=== PATIENT | male | born 1945 | race Caucasian/White ===

== ENCOUNTER → 2016-11-19 | Outpatient (CLI) | payer OTHER ==
[~2016-11-19] MED LIST: CEPH-37 PO; CLON1TAB3 PO; COLC1CAP PO; CYCL1TAB18 PO; FINA5TAB4 PO; METO-159 PO; SERT-160 PO
[2016-11-19 16:37] LABS: Basophils # (auto) 0 uL; Basophils % (auto) 0.5 % (0.0-2.0); Eosinophils # (auto) 0.3 uL; Eosinophils % (auto) 3.4 % (0.0-7.0); Hematocrit 50.6 % (41.0-53.0); Hemoglobin 16.9 g/dL (13.5-17.5); Lymphocytes # (auto) 1.4 uL; Lymphocytes % (auto) 19.4 % (10.0-50.0); Mean Corpuscular Hemoglobin 30.5 pg (28.0-32.0); Mean Corpuscular Hgb Conc. 33.3 g/dL (32.0-36.0); Mean Corpuscular Volume 91.5 fL (80.0-100.0); Mean Platelet Volume 6.9 fL (7.4-10.4); Monocytes # (auto) 0.7 uL; Monocytes % (auto) 8.7 % (0.0-12.0); Neutrophils # (auto) 5.1 uL; Platelet Count (auto) 191 10^3/uL (140-450); Red Cell Distribution Width 16.1 % (11.6-16.0); White Blood Cell 7.5 10^3/uL (4.4-10.8)
[2016-11-19 16:48] LABS: BUN/Creatinine Ratio 28.6; Calcium 8.9 mg/dL (8.5-10.1); Potassium 4.3 mmol/L (3.5-5.1)
[2016-11-19 16:51] LABS: Bilirubin, Total 1.2 mg/dL (0.2-1.0); Total Protein 7.4 g/dL (6.4-8.2)
[2016-11-19 16:58] LABS: INR 1.12 (0.9-1.15); Partial Thromboplastin Time 28.3 sec (22.64-33.71); Prothrombin Time 11.5 sec (9.37-12.3)
[2016-11-19 17:10] LABS: Urine Bilirubin Negative (Negative); Urine Blood Negative /uL (Negative); Urine Color Yellow (Yellow); Urine Glucose Normal (Normal); Urine Ketone Negative (Negative); Urine Mucus FEW (None Seen); Urine RBC 6 /hpf (0 - 3); Urine Urobilinogen Normal (Negative); Urine WBC Clumps PRESENT /hpf (None Seen); Urine pH 5.5 (5.0-8.0)
[2016-11-19 17:11] LABS: Urine Nitrite POSITIVE (Negative)
== END | disposition home or self-care (01) ==
LOC: LAB 14:42
PROVIDERS: ATTEND Podiatrist Foot & Ankle Surgery
DX: L89.899 Pressure ulcer of other site, unspecified stage (principal)
CPT/HCPCS: 36415; 80053; 81001; 85025; 85610; 85730

== ENCOUNTER → 2016-12-01 | Day surgery (SDC) | payer OTHER ==
[~2016-12-01] VITALS: Ht 193 cm; Wt 108.9 kg
[~2016-12-01] MED LIST changes: +BUPIVACAINE 0.75% INJ 10ML MPV SDV IJ ONE; +BUPIVACAINE W/ EPINEPH 0.25% INJ 50ML MDV ONE; -CEPH-37 PO; +DEXAMETHASONE SOD PHOS 10MG/1ML VIAL INJ ONE; +HYDROmorphone HCL 2 MG/ML VL IV PRN; +KETOROLAC TROMETH 60MG/2ML VIAL IM ONE; +LIDOCAINE 1% HCL (LOCAL ANESTH.) INJ 20ML MDV ONE; +MIDAZOLAM HCL 1MG/1ML-2 ML VIAL ONE; +NEOMYCIN-BACITRACIN-POLYM 15GM TOP OINT TOP ONE; +ONDANSETRON HCL 4 MG/2 ML VIAL IV ONE; +ONDANSETRON HCL 4 MG/2 ML VIAL ONE; +PROPOFOL 10 MG/ML 20 ML IV ONE; +ROPIVACAINE 0.5% (5MG/ML) 20ML AMPULE IJ ONE; +ceFAZolin 1GM VL ONE; +ceFAZolin 1GM/50ML D5W 50 ML IV ONE; +fentaNYL CITRATE 100 MCG/2 ML VL ONE; +methylPREDNISolone ACETATE 80 MG/ML VL ONE
[2016-12-01 07:04] LABS: Basophils # (auto) 0 uL; Basophils % (auto) 0.3 % (0.0-2.0); Eosinophils # (auto) 0.4 uL; Eosinophils % (auto) 5.2 % (0.0-7.0); Hematocrit 48.9 % (41.0-53.0); Hemoglobin 16.6 g/dL (13.5-17.5); Lymphocytes # (auto) 1.6 uL; Lymphocytes % (auto) 22.8 % (10.0-50.0); Mean Corpuscular Hemoglobin 30.9 pg (28.0-32.0); Mean Corpuscular Volume 90.7 fL (80.0-100.0); Mean Platelet Volume 6.5 fL (7.4-10.4); Monocytes # (auto) 0.7 uL; Monocytes % (auto) 10.2 % (0.0-12.0); Neutrophils # (auto) 4.3 uL; Neutrophils % (auto) 61.5 % (37.0-80.0); Platelet Count (auto) 179 10^3/uL (140-450); Red Cell Distribution Width 15.7 % (11.6-16.0)
[2016-12-01 07:20] LABS: Calcium 8.4 mg/dL (8.5-10.1); Potassium 4.1 mmol/L (3.5-5.1)
[2016-12-01 07:32] LABS: INR 1.1 (0.9-1.15); Partial Thromboplastin Time 27.5 sec (22.64-33.71); Prothrombin Time 11.3 sec (9.37-12.3)
[2016-12-01 09:12] VITALS: BP 106/64
== END | disposition home or self-care (01) ==
LOC: SUR 06:20
PROVIDERS: ATTEND Podiatrist Foot & Ankle Surgery
DX: M21.6X2 Other acquired deformities of left foot (principal); M24.575 Contracture, left foot; L97.429 Non-pressure chronic ulcer of left heel and midfoot with unspecified severity; I50.9 Heart failure, unspecified; F41.9 Anxiety disorder, unspecified; F32.9 Major depressive disorder, single episode, unspecified; F10.99 Alcohol use, unspecified with unspecified alcohol-induced disorder; B19.10 Unspecified viral hepatitis B without hepatic coma
CPT/HCPCS: 27685; 29999; 36415; 80048; 85025; 85610; 85730; J0690; J1040; J1100; J1885; J2250; J2405; J2704; J3010; J3490; J2001

== ENCOUNTER → 2017-01-30 | Outpatient (CLI) | payer OTHER ==
[~2017-01-30] MED LIST changes: -BUPIVACAINE 0.75% INJ 10ML MPV SDV IJ ONE; -BUPIVACAINE W/ EPINEPH 0.25% INJ 50ML MDV ONE; -DEXAMETHASONE SOD PHOS 10MG/1ML VIAL INJ ONE; -HYDROmorphone HCL 2 MG/ML VL IV PRN; -KETOROLAC TROMETH 60MG/2ML VIAL IM ONE; -LIDOCAINE 1% HCL (LOCAL ANESTH.) INJ 20ML MDV ONE; -MIDAZOLAM HCL 1MG/1ML-2 ML VIAL ONE; -NEOMYCIN-BACITRACIN-POLYM 15GM TOP OINT TOP ONE; -ONDANSETRON HCL 4 MG/2 ML VIAL IV ONE; -ONDANSETRON HCL 4 MG/2 ML VIAL ONE; -PROPOFOL 10 MG/ML 20 ML IV ONE; -ROPIVACAINE 0.5% (5MG/ML) 20ML AMPULE IJ ONE; -ceFAZolin 1GM VL ONE; -ceFAZolin 1GM/50ML D5W 50 ML IV ONE; -fentaNYL CITRATE 100 MCG/2 ML VL ONE; -methylPREDNISolone ACETATE 80 MG/ML VL ONE
== END | disposition home or self-care (01) ==
LOC: RT 19:24
PROVIDERS: ATTEND Internal Medicine Pulmonary Disease
DX: G47.33 Obstructive sleep apnea (adult) (pediatric) (principal)

== ENCOUNTER → 2017-02-27 | Outpatient (CLI) | payer OTHER | END | disposition home or self-care (01) | LOC: RT 19:35 | PROVIDERS: ATTEND Internal Medicine Pulmonary Disease | DX: G47.33 Obstructive sleep apnea (adult) (pediatric) (principal) ==

== ENCOUNTER 2017-04-04 13:31 | Inpatient (IN) | payer OTHER ==
[~2017-04-04] VITALS: Ht 193 cm; Wt 111.0 kg
[2017-04-04 15:29] LABS: Basophils # (auto) 0 uL; Basophils % (auto) 0.4 % (0.0-2.0); CONDITION Y; Eosinophils # (auto) 0.2 uL; Hematocrit 36.4 % (41.0-53.0); Hemoglobin 12.5 g/dL (13.5-17.5); Lymphocytes # (auto) 1.4 uL; Lymphocytes % (auto) 17.8 % (10.0-50.0); Mean Corpuscular Hgb Conc. 34.4 g/dL (32.0-36.0); Mean Corpuscular Volume 95.9 fL (80.0-100.0); Monocytes # (auto) 0.9 uL; Monocytes % (auto) 11.2 % (0.0-12.0); Neutrophils # (auto) 5.6 uL; Neutrophils % (auto) 68.6 % (37.0-80.0); Platelet Count (auto) 206 10^3/uL (140-450); Red Cell Distribution Width 14.6 % (11.6-16.0); White Blood Cell 8.1 10^3/uL (4.4-10.8)
[2017-04-04 15:35] LABS: Albumin 3.4 g/dL (3.4-5.0); BUN/Creatinine Ratio 38.9; Potassium 4.8 mmol/L (3.5-5.1)
[2017-04-04 15:38] LABS: Bilirubin, Total 0.7 mg/dL (0.2-1.0); Total Protein 6.6 g/dL (6.4-8.2)
[2017-04-04 15:41] LABS: INR 1.05 (0.9-1.15); Partial Thromboplastin Time 30.1 sec (22.64-33.71); Prothrombin Time 11.5 sec (9.37-12.3)
[2017-04-04] MEDS ORDERED: SODIUM CHLORIDE 0.9% 1,000 ML IV ONE (22:15)
[2017-04-04] MEDS ORDERED: PANTOPRAZOLE SODIUM 40 MG/10 ML VIAL IV ONE (22:15)
[2017-04-04 22:55] LABS: B-Type Natriuretic Peptide 106.88 pg/mL (0-100); Temperature: 22.9 C (20.0-25.0)
[2017-04-05 02:40] LABS: Urine Bilirubin Negative (Negative); Urine Blood Negative /uL (Negative); Urine Color Yellow (Yellow); Urine Glucose Normal (Normal); Urine Ketone Negative (Negative); Urine Mucus FEW (None Seen); Urine RBC 1 /hpf (0 - 3); Urine Squamous Epithelial Cell FEW /hpf (<5); Urine Urobilinogen Normal (Negative); Urine pH 5.5 (5.0-8.0)
[2017-04-05 02:42] LABS: Urine Nitrite POSITIVE (Negative)
[2017-04-05] MEDS ORDERED: LORazepam 2MG/ML-1ML VIAL IV ONE (05:00)
[2017-04-05] MEDS ORDERED: MORPHINE SULF INJ 2 MG/ML SYRINGE 1ML IV PRN (05:45)
[2017-04-05] MEDS ORDERED: SODIUM CHLORIDE 0.9% 1,000 ML IV ONE (05:45)
[2017-04-05] MEDS ORDERED: ONDANSETRON HCL 4 MG/2 ML VIAL IV PRN (05:45)
[2017-04-05 06:41] LABS: Hematocrit 31.7 % (41.0-53.0)
[2017-04-05] MEDS: SODIUM CHLORIDE 0.9% 1,000 ML IV SCH ×2 (07:20→19:00)
[2017-04-05] MEDS ORDERED: BETH5TAB2 PO (08:19)
[2017-04-05 08:31] VITALS: BP 127/67
[2017-04-05 09:11] VITALS: BP 130/65
[2017-04-05] MEDS: FINASTERIDE 5 MG TAB PO SCH (09:13)
[2017-04-05] MEDS: METOPROLOL TARTRATE 50 MG TAB PO SCH ×2 (09:14→21:49)
[2017-04-05] MEDS: PANTOPRAZOLE 40 MG TAB PO SCH (09:14)
[2017-04-05] MEDS: SERTRALINE HCL 50 MG TAB PO SCH (09:19)
[2017-04-05 12:27] LABS: Hematocrit 30.7 % (41.0-53.0); Hemoglobin 10.8 g/dL (13.5-17.5)
[2017-04-05 12:30] VITALS: BP 121/80
[2017-04-05 16:22] VITALS: BP 122/71
[2017-04-05] MEDS ORDERED: GASTROGRAFIN 120 ML SOL ONE (17:10)
[2017-04-05 19:09] LABS: Hematocrit 35.1 % (41.0-53.0)
[2017-04-05 20:00] VITALS: BP 122/69
[2017-04-05] MEDS: clonazePAM 0.5 MG TAB PO PRN (20:32)
[2017-04-05 22:00] VITALS: BP 122/69
[2017-04-06] VITALS (7 sets, daily range): BP systolic 100–125; BP diastolic 55–72
[2017-04-06 06:26] LABS: Basophils # (auto) 0 uL; Basophils % (auto) 0.3 % (0.0-2.0); CONDITION Y; Eosinophils # (auto) 0.2 uL; Eosinophils % (auto) 3.3 % (0.0-7.0); Hematocrit 30.5 % (41.0-53.0); Hemoglobin 10.5 g/dL (13.5-17.5); Mean Corpuscular Hgb Conc. 34.4 g/dL (32.0-36.0); Mean Corpuscular Volume 96.1 fL (80.0-100.0); Mean Platelet Volume 6.7 fL (7.4-10.4); Monocytes # (auto) 0.6 uL; Monocytes % (auto) 9.6 % (0.0-12.0); Neutrophils # (auto) 4.6 uL; Neutrophils % (auto) 71.8 % (37.0-80.0); Platelet Count (auto) 165 10^3/uL (140-450); Red Cell Distribution Width 14.3 % (11.6-16.0); White Blood Cell 6.4 10^3/uL (4.4-10.8)
[2017-04-06 06:55] LABS: BUN/Creatinine Ratio 28.4; Bilirubin, Total 0.7 mg/dL (0.2-1.0); Calcium 7.7 mg/dL (8.5-10.1); Magnesium 1.9 mg/dL (1.6-2.6); Potassium 3.3 mmol/L (3.5-5.1); Total Protein 5.6 g/dL (6.4-8.2)
[2017-04-06] MEDS: FINASTERIDE 5 MG TAB PO SCH (11:06)
[2017-04-06] MEDS: METOPROLOL TARTRATE 50 MG TAB PO SCH ×2 (11:07→21:59)
[2017-04-06] MEDS: PANTOPRAZOLE 40 MG TAB PO SCH (11:07)
[2017-04-06] MEDS: SERTRALINE HCL 50 MG TAB PO SCH (11:07)
[2017-04-06] MEDS: SODIUM CHLORIDE 0.9% 1,000 ML IV SCH ×2 (11:08→22:03)
[2017-04-06] MEDS: clonazePAM 0.5 MG TAB PO PRN (11:26)
[2017-04-06] MEDS ORDERED: MAGNESIUM SULFATE 1GM/100ML 100 ML IV ONE (12:30)
[2017-04-06] MEDS ORDERED: GOLYTELY 4L KIT PO ONE (13:45)
[2017-04-06] MEDS: POTASSIUM CHL 20MEQ/100ML 100 ML IV SCH ×2 (14:30→18:00)
[2017-04-06] MEDS ORDERED: POTASSIUM CHL 20MEQ/100ML 100 ML IV ONE (20:00)
[2017-04-07] MEDS: clonazePAM 0.5 MG TAB PO PRN ×3 (00:32→23:58)
[2017-04-07 05:00] VITALS: BP 112/68
[2017-04-07 06:29] LABS: Hematocrit 29.6 % (41.0-53.0); Hemoglobin 10.6 g/dL (13.5-17.5)
[2017-04-07 06:59] LABS: Potassium 3.5 mmol/L (3.5-5.1)
[2017-04-07 07:06] LABS: BUN/Creatinine Ratio 15.6; Calcium 7.8 mg/dL (8.5-10.1)
[2017-04-07 09:00] VITALS: BP 111/67
[2017-04-07] MEDS ORDERED: fentaNYL CITRATE 100 MCG/2 ML VL ONE (12:16)
[2017-04-07] MEDS ORDERED: MIDAZOLAM HCL 1MG/1ML-2 ML VIAL ONE (12:17)
[2017-04-07] MEDS ORDERED: PROPOFOL 10 MG/ML 20 ML IV ONE (12:17)
[2017-04-07] MEDS ORDERED: ONDANSETRON HCL 4 MG/2 ML VIAL IV ONE (12:20)
[2017-04-07] MEDS ORDERED: BENZOCAINE (DENTAL) 20 % SPRAY 60ML MT ONE (12:23)
[2017-04-07 13:30] VITALS: BP 115/73
[2017-04-07] MEDS: FINASTERIDE 5 MG TAB PO SCH (14:34)
[2017-04-07] MEDS: SODIUM CHLORIDE 0.9% 1,000 ML IV SCH (14:35)
[2017-04-07] MEDS: PANTOPRAZOLE 40 MG TAB PO SCH (14:35)
[2017-04-07] MEDS: SERTRALINE HCL 50 MG TAB PO SCH (14:35)
[2017-04-07] MEDS: METOPROLOL TARTRATE 50 MG TAB PO SCH ×2 (14:36→21:35)
[2017-04-07] MEDS ORDERED: POTASSIUM CHL 20 Meq TABLET PO ONE (15:45)
[2017-04-07] MEDS ORDERED: LEVOFLOXACIN 500MG 100 ML IV ONE (16:45)
[2017-04-07 17:05] VITALS: BP 115/74
[2017-04-07 22:00] VITALS: BP 109/65
[2017-04-08 05:00] VITALS: BP 106/67
[2017-04-08] MEDS ORDERED: SODIUM CHLORIDE 0.9% 1,000 ML IV SCH (05:40)
[2017-04-08 06:03] LABS: Hematocrit 30.1 % (41.0-53.0); Hemoglobin 10.3 g/dL (13.5-17.5)
[2017-04-08 09:18] VITALS: BP 107/70
[2017-04-08] MEDS ORDERED: LEVOFLOXACIN 500MG 100 ML IV SCH (10:00)
[2017-04-08] MEDS: SERTRALINE HCL 50 MG TAB PO SCH (10:55)
[2017-04-08] MEDS: clonazePAM 0.5 MG TAB PO PRN (10:55)
[2017-04-08] MEDS: FINASTERIDE 5 MG TAB PO SCH (10:57)
[2017-04-08] MEDS: METOPROLOL TARTRATE 50 MG TAB PO SCH (10:57)
[2017-04-08] MEDS: PANTOPRAZOLE 40 MG TAB PO SCH (10:57)
[2017-04-08] MEDS ORDERED: PANT40T PO (12:46)
[2017-04-08] MEDS ORDERED: LEVO500T21 PO (12:46)
[2017-04-08] MEDS ORDERED: SACC250C PO (12:46)
[2017-04-08 13:20] VITALS: BP 120/73
== END 2017-04-08 16:26 | disposition home or self-care (01) | DRG 389 ==
LOC: ER 13:33 → OVERFLOW 13:34 → TELE-E-ADS 04-05 07:51 → WEST WING 04-05 08:02
PROVIDERS: ADMIT Family Medicine; ATTEND Internal Medicine
PROC: 0DJ08ZZ Inspection of Upper Intestinal Tract, Via Natural or Artificial Opening Endoscopic (ICD-10-PCS; principal; 2017-04-07 12:20)
PROC: 0DBN8ZX Excision of Sigmoid Colon, Via Natural or Artificial Opening Endoscopic, Diagnostic (ICD-10-PCS; 2017-04-07 12:20)
DX: K56.1 Intussusception (principal); K92.2 Gastrointestinal hemorrhage, unspecified; N39.0 Urinary tract infection, site not specified; D64.9 Anemia, unspecified; I11.0 Hypertensive heart disease with heart failure; I50.9 Heart failure, unspecified; N28.1 Cyst of kidney, acquired; Z85.46 Personal history of malignant neoplasm of prostate; Z88.8 Allergy status to other drugs, medicaments and biological substances; Z85.9 Personal history of malignant neoplasm, unspecified; Z71.89 Other specified counseling; K64.8 Other hemorrhoids; K20.9 Esophagitis, unspecified
CPT/HCPCS: 36415; 43235; 45380; 71010; 74176; 74250; 80048; 80053; 80061; 81001; 82140; 82270; 82378; 83690; 83735; 83880; 84132; 84484; 85014; 85018; 85025; 85045; 85610; 85730; 86141; 86850; 86900; 86901; 87086; 87088; 87186; 93005; 96374; 96375; C9113; J1956; J2250; J2405; J2704; J3480

== ENCOUNTER → 2017-04-14 | Outpatient (CLI) | payer OTHER ==
[~2017-04-14] MED LIST changes: +BETH5TAB2 PO; +LEVO500T21 PO; +PANT40T PO; +SACC250C PO
[2017-04-14 12:22] LABS: Basophils # (auto) 0 uL; Basophils % (auto) 0.3 % (0.0-2.0); CONDITION Y; Eosinophils # (auto) 0.2 uL; Eosinophils % (auto) 3.8 % (0.0-7.0); Hematocrit 34.2 % (41.0-53.0); Hemoglobin 11.9 g/dL (13.5-17.5); Lymphocytes # (auto) 1.2 uL; Lymphocytes % (auto) 20.5 % (10.0-50.0); Mean Corpuscular Hgb Conc. 34.8 g/dL (32.0-36.0); Mean Platelet Volume 6.5 fL (7.4-10.4); Monocytes # (auto) 0.5 uL; Monocytes % (auto) 8.9 % (0.0-12.0); Neutrophils % (auto) 66.5 % (37.0-80.0); Platelet Count (auto) 235 10^3/uL (140-450); Red Cell Distribution Width 13.7 % (11.6-16.0)
[2017-04-14 13:14] LABS: BUN/Creatinine Ratio 21.6; Calcium 8.4 mg/dL (8.5-10.1); Potassium 3.8 mmol/L (3.5-5.1)
== END | disposition home or self-care (01) ==
LOC: LAB 10:41
PROVIDERS: ATTEND Family Medicine
DX: K92.2 Gastrointestinal hemorrhage, unspecified (principal)
CPT/HCPCS: 36415; 80048; 85025

== ENCOUNTER → 2017-05-03 | Day surgery (SDC) | payer OTHER ==
[2017-05-02 13:23] LABS: Basophils # (auto) 0 uL; Basophils % (auto) 0.3 % (0.0-2.0); CONDITION Y; Eosinophils # (auto) 0.3 uL; Eosinophils % (auto) 4.7 % (0.0-7.0); Hematocrit 35.1 % (41.0-53.0); Hemoglobin 11.7 g/dL (13.5-17.5); Lymphocytes # (auto) 1.1 uL; Lymphocytes % (auto) 16.6 % (10.0-50.0); Mean Corpuscular Hemoglobin 27.8 pg (28.0-32.0); Mean Corpuscular Hgb Conc. 33.2 g/dL (32.0-36.0); Mean Corpuscular Volume 83.7 fL (80.0-100.0); Mean Platelet Volume 7.1 fL (7.4-10.4); Monocytes # (auto) 0.6 uL; Monocytes % (auto) 9.2 % (0.0-12.0); Neutrophils # (auto) 4.6 uL; Neutrophils % (auto) 69.2 % (37.0-80.0); Platelet Count (auto) 206 10^3/uL (140-450); Red Cell Distribution Width 16.2 % (11.6-16.0); White Blood Cell 6.6 10^3/uL (4.4-10.8)
[2017-05-02 13:26] LABS: Partial Thromboplastin Time 28.6 sec (22.64-33.71); Prothrombin Time 10.9 sec (9.37-12.3)
[2017-05-02 13:52] LABS: Potassium 4.2 mmol/L (3.5-5.1)
[2017-05-02 14:27] LABS: Albumin 3.6 g/dL (3.4-5.0); BUN/Creatinine Ratio 33.7; Bilirubin, Total 0.6 mg/dL (0.2-1.0); Calcium 8.5 mg/dL (8.5-10.1); Total Protein 6.6 g/dL (6.4-8.2)
[~2017-05-03] VITALS: Ht 193 cm; Wt 108.9 kg
[~2017-05-03] MED LIST changes: -BETH5TAB2 PO; -COLC1CAP PO; -CYCL1TAB18 PO; -FINA5TAB4 PO; -LEVO500T21 PO; -PANT40T PO; -SACC250C PO
== END | disposition home or self-care (01) ==
LOC: SUR 11:32
PROVIDERS: ATTEND Urology
DX: N32.81 Overactive bladder (principal); R32 Unspecified urinary incontinence; Z53.9 Procedure and treatment not carried out, unspecified reason
CPT/HCPCS: 36415; 80053; 85025; 85610; 85730

== ENCOUNTER → 2017-05-26 | Outpatient (CLI) | payer OTHER ==
[2017-05-26 15:43] LABS: Basophils # (auto) 0 uL; Basophils % (auto) 0.1 % (0.0-2.0); CONDITION Y; DEFINITIVE SEE PRINTOUT; Eosinophils # (auto) 0.2 uL; Hematocrit 24.3 % (41.0-53.0); Hemoglobin 7.8 g/dL (13.5-17.5); Lymphocytes % (auto) 15.6 % (10.0-50.0); Mean Corpuscular Hemoglobin 24.5 pg (28.0-32.0); Mean Corpuscular Hgb Conc. 32.3 g/dL (32.0-36.0); Mean Corpuscular Volume 75.9 fL (80.0-100.0); Mean Platelet Volume 6.6 fL (7.4-10.4); Monocytes # (auto) 0.6 uL; Monocytes % (auto) 9.5 % (0.0-12.0); Neutrophils # (auto) 4.7 uL; Neutrophils % (auto) 71.8 % (37.0-80.0); Platelet Count (auto) 170 10^3/uL (140-450); Red Cell Distribution Width 18.8 % (11.6-16.0); White Blood Cell 6.6 10^3/uL (4.4-10.8)
== END | disposition home or self-care (01) ==
LOC: LAB 15:28
PROVIDERS: ATTEND Internal Medicine Gastroenterology
DX: K92.1 Melena (principal); K59.00 Constipation, unspecified; I10 Essential (primary) hypertension; N39.0 Urinary tract infection, site not specified
CPT/HCPCS: 36415; 85025

== ENCOUNTER → 2017-06-06 | Outpatient (CLI) | payer OTHER ==
[2017-06-06 13:00] LABS: Basophils # (auto) 0 uL; Basophils % (auto) 0.4 % (0.0-2.0); CONDITION Y; DEFINITIVE SEE PRINTOUT; Eosinophils # (auto) 0.2 uL; Eosinophils % (auto) 2.2 % (0.0-7.0); Hematocrit 24.7 % (41.0-53.0); Hemoglobin 7.9 g/dL (13.5-17.5); Lymphocytes # (auto) 1.1 uL; Mean Corpuscular Hemoglobin 22.7 pg (28.0-32.0); Mean Corpuscular Hgb Conc. 31.9 g/dL (32.0-36.0); Mean Corpuscular Volume 71.2 fL (80.0-100.0); Mean Platelet Volume 6.8 fL (6.9-10.8); Monocytes # (auto) 0.6 uL; Monocytes % (auto) 7.4 % (0.0-12.0); Neutrophils # (auto) 6.1 uL; Platelet Count (auto) 204 10^3/uL (140-450); Red Cell Distribution Width 19.6 % (11.8-14.3)
== END | disposition home or self-care (01) ==
LOC: LAB 12:42
PROVIDERS: ATTEND Family Medicine
DX: K92.2 Gastrointestinal hemorrhage, unspecified (principal); D64.9 Anemia, unspecified
CPT/HCPCS: 36415; 85025

== ENCOUNTER → 2017-06-27 | Outpatient (CLI) | payer OTHER ==
[~2017-06-27] VITALS: Ht 193 cm; Wt 108.9 kg
[~2017-06-27] MED LIST changes: +CLON05T PO; +FINA5TAB4 PO; +FLUMAZENIL 0.1 MG/ML INJ 10ML MDV IV ONE; +LIDOCAINE VISCOUS 2% 15ML UD ONE; +METO1TAB9 PO; +MIDAZOLAM HCL 5 MG/ML-1ML VIAL ONE; +NALOXONE HCL 0.4 MG/ML VIAL ONE; +PANT40TA2 PO; +SODIUM CHLORIDE LOCK 10 ML ONE; +diphenhdrAMINE HCL 50 MG/1 ML VL ONE; +fentaNYL CITRATE 100 MCG/2 ML VL ONE
[2017-06-27 12:39] LABS: INR 1.22 (0.9-1.15); Partial Thromboplastin Time 28.5 sec (22.64-33.71); Prothrombin Time 13.3 sec (9.37-12.3)
[2017-06-27 13:06] LABS: Basophils # (auto) 0 uL; Basophils % (auto) 0.5 % (0.0-2.0); Eosinophils # (auto) 0.2 uL; Eosinophils % (auto) 3.4 % (0.0-7.0); Hematocrit 25.7 % (41.0-53.0); Hemoglobin 7.5 g/dL (13.5-17.5); Lymphocytes # (auto) 0.7 uL; Mean Corpuscular Hemoglobin 19.6 pg (28.0-32.0); Mean Corpuscular Hgb Conc. 29.3 g/dL (32.0-36.0); Mean Platelet Volume 6.6 fL (6.9-10.8); Monocytes # (auto) 0.5 uL; Monocytes % (auto) 10.4 % (0.0-12.0); Neutrophils # (auto) 3.7 uL; Neutrophils % (auto) 71.7 % (37.0-80.0); Nucleated Red Blood Cells % 0.5 %; Platelet Count (auto) 141 10^3/uL (140-450); White Blood Cell 5.2 10^3/uL (4.4-10.8)
[2017-06-27 13:07] LABS: Red Cell Distribution Width 20.4 % (11.8-14.3)
[2017-06-27 13:08] LABS: Platelet Estimate Adequate
[2017-06-27 13:09] LABS: Anisocytosis Moderate; Hypochromia Marked; Microcytosis Marked; Ovalocytes FEW; Tear Drop Cells FEW
== END | disposition home or self-care (01) ==
LOC: LAB 08:00 → EDSTATUS 07-01 11:15
PROVIDERS: ATTEND Internal Medicine Gastroenterology
DX: R11.0 Nausea (principal); Z79.01 Long term (current) use of anticoagulants
CPT/HCPCS: 36415; 85025; 85610; 85730; J2250

== ENCOUNTER 2017-07-04 14:34 | Inpatient (IN) | payer OTHER ==
[~2017-07-04] VITALS: Ht 193 cm; Wt 127.8 kg
[~2017-07-04 14:34] MED LIST changes: -CLON05T PO; -FLUMAZENIL 0.1 MG/ML INJ 10ML MDV IV ONE; -LIDOCAINE VISCOUS 2% 15ML UD ONE; -METO1TAB9 PO; -MIDAZOLAM HCL 5 MG/ML-1ML VIAL ONE; -NALOXONE HCL 0.4 MG/ML VIAL ONE; -SODIUM CHLORIDE LOCK 10 ML ONE; -diphenhdrAMINE HCL 50 MG/1 ML VL ONE; -fentaNYL CITRATE 100 MCG/2 ML VL ONE
[2017-07-04 17:00] VITALS: BP 140/96
[2017-07-04 18:34] LABS: Basophils # (auto) 0 uL; Basophils % (auto) 0.6 % (0.0-2.0); Eosinophils # (auto) 0.1 uL; Hemoglobin 7.6 g/dL (13.5-17.5); Lymphocytes % (auto) 13.2 % (10.0-50.0); Mean Platelet Volume 7.9 fL (6.9-10.8); Monocytes # (auto) 0.6 uL; Neutrophils # (auto) 4.2 uL
[2017-07-04 18:36] LABS: Eosinophils % (auto) 1.7 % (0.0-7.0); Hematocrit 26.6 % (41.0-53.0); Lymphocytes # (auto) 0.8 uL; Mean Corpuscular Hemoglobin 18.8 pg (28.0-32.0); Mean Corpuscular Hgb Conc. 28.5 g/dL (32.0-36.0); Monocytes % (auto) 10.8 % (0.0-12.0); Neutrophils % (auto) 73.7 % (37.0-80.0); Nucleated Red Blood Cells % 0.5 %; Platelet Count (auto) 137 10^3/uL (140-450); White Blood Cell 5.7 10^3/uL (4.4-10.8)
[2017-07-04 18:52] LABS: INR 1.24 (0.9-1.15); Partial Thromboplastin Time 28.5 sec (22.64-33.71); Prothrombin Time 13.6 sec (9.37-12.3)
[2017-07-04 19:00] LABS: BUN/Creatinine Ratio 22.9; Calcium 8.1 mg/dL (8.5-10.1); Potassium 4.1 mmol/L (3.5-5.1); Red Cell Distribution Width 20.2 % (11.8-14.3)
[2017-07-04 19:22] LABS: Ovalocytes MODERATE; Stomatocytes Few
[2017-07-04 19:23] LABS: Anisocytosis Slight; Hypochromia Marked; Microcytosis Marked; Platelet Estimate Decreased; Tear Drop Cells FEW
[2017-07-04 19:24] LABS: Polychromasia Slight
[2017-07-04 20:00] VITALS: BP 129/79
[2017-07-04 21:27] VITALS: BP 129/79
[2017-07-04 21:48] VITALS: BP 132/90
[2017-07-04] MEDS: clonazePAM 0.5 MG TAB PO SCH (21:53)
[2017-07-04] MEDS: METOPROLOL TARTRATE 50 MG TAB PO SCH (21:54)
[2017-07-04] MEDS: SERTRALINE HCL 50 MG TAB PO SCH (21:54)
[2017-07-04 22:00] VITALS: BP 129/79
[2017-07-04 22:20] VITALS: BP 135/91
[2017-07-05] VITALS (10 sets, daily range): BP systolic 114–129; BP diastolic 61–81
[2017-07-05 00:52] LABS: Urine RBC None Seen /hpf (0 - 3)
[2017-07-05 01:06] LABS: Urine Bilirubin Negative (Negative); Urine Blood Negative /uL (Negative); Urine Color Yellow (Yellow); Urine Glucose Normal (Normal); Urine Hyaline Cast FEW /lpf (0 - 2); Urine Ketone Negative (Negative); Urine Nitrite Negative (Negative); Urine Urobilinogen Normal (Negative); Urine pH 5.5 (5.0-8.0)
[2017-07-05 05:44] LABS: Basophils # (auto) 0 uL; Basophils % (auto) 0.6 % (0.0-2.0); Eosinophils # (auto) 0.2 uL; Hematocrit 29.1 % (41.0-53.0); Hemoglobin 8.7 g/dL (13.5-17.5); Mean Corpuscular Hemoglobin 20.3 pg (28.0-32.0); Mean Corpuscular Hgb Conc. 29.8 g/dL (32.0-36.0); Mean Platelet Volume 7.9 fL (6.9-10.8); Nucleated Red Blood Cells % 0.3 %; White Blood Cell 7.3 10^3/uL (4.4-10.8)
[2017-07-05 05:48] LABS: Eosinophils % (auto) 2.5 % (0.0-7.0); Lymphocytes # (auto) 0.9 uL; Lymphocytes % (auto) 12.3 % (10.0-50.0); Monocytes # (auto) 0.8 uL; Monocytes % (auto) 11.1 % (0.0-12.0); Neutrophils # (auto) 5.3 uL; Neutrophils % (auto) 73.5 % (37.0-80.0); Platelet Count (auto) 130 10^3/uL (140-450)
[2017-07-05 05:51] LABS: Red Cell Distribution Width 22.6 % (11.8-14.3)
[2017-07-05 06:13] LABS: BUN/Creatinine Ratio 23.4; Calcium 8.4 mg/dL (8.5-10.1); Potassium 4.3 mmol/L (3.5-5.1)
[2017-07-05 06:36] LABS: Platelet Estimate Decreased
[2017-07-05 06:37] LABS: Anisocytosis Slight; Hypersegmented Neutrophils Present; Hypochromia Marked; Microcytosis Marked; Polychromasia Slight; Tear Drop Cells FEW
[2017-07-05 06:38] LABS: Ovalocytes MODERATE
[2017-07-05] MEDS: METOPROLOL TARTRATE 50 MG TAB PO SCH (10:00)
[2017-07-05] MEDS: FINASTERIDE 5 MG TAB PO SCH (10:00)
[2017-07-05] MEDS: SERTRALINE HCL 50 MG TAB PO SCH ×2 (10:00→22:57)
[2017-07-05] MEDS: PANTOPRAZOLE 40 MG TAB PO SCH (10:00)
[2017-07-05] MEDS ORDERED: METO1TAB9 PO (12:09)
[2017-07-05] MEDS ORDERED: METOPROLOL SUCCINATE XL 50 MG TAB PO ONE (12:45)
[2017-07-05] MEDS ORDERED: FUROSEMIDE 40 MG/4 ML VIAL IV ONE (12:45)
[2017-07-05] MEDS ORDERED: POTASSIUM CHL 20 Meq TABLET PO ONE (12:45)
[2017-07-05] MEDS: clonazePAM 0.5 MG TAB PO SCH (22:56)
[2017-07-05] MEDS ORDERED: CLON05T PO (23:09)
[2017-07-06] VITALS (7 sets, daily range): BP systolic 105–133; BP diastolic 53–86
[2017-07-06 06:49] LABS: Basophils # (auto) 0 uL; Eosinophils # (auto) 0.2 uL; Lymphocytes # (auto) 0.9 uL; Monocytes # (auto) 0.7 uL
[2017-07-06 07:01] LABS: Basophils % (auto) 0.4 % (0.0-2.0); Eosinophils % (auto) 2.9 % (0.0-7.0); Hematocrit 28.7 % (41.0-53.0); Hemoglobin 8.4 g/dL (13.5-17.5); Lymphocytes % (auto) 13.3 % (10.0-50.0); Mean Corpuscular Hemoglobin 20.1 pg (28.0-32.0); Mean Corpuscular Hgb Conc. 29.4 g/dL (32.0-36.0); Mean Corpuscular Volume 68.3 fL (80.0-100.0); Monocytes % (auto) 10.9 % (0.0-12.0); Neutrophils # (auto) 4.6 uL; Neutrophils % (auto) 72.5 % (37.0-80.0); Nucleated Red Blood Cells % 0.2 %; Platelet Count (auto) 120 10^3/uL (140-450); White Blood Cell 6.4 10^3/uL (4.4-10.8)
[2017-07-06 07:09] LABS: Calcium 8.2 mg/dL (8.5-10.1); Potassium 4.5 mmol/L (3.5-5.1)
[2017-07-06 07:14] LABS: BUN/Creatinine Ratio 21.3
[2017-07-06 08:12] LABS: Red Cell Distribution Width 22.1 % (11.8-14.3)
[2017-07-06] MEDS: PANTOPRAZOLE 40 MG TAB PO SCH (10:43)
[2017-07-06] MEDS: FINASTERIDE 5 MG TAB PO SCH (10:43)
[2017-07-06] MEDS: METOPROLOL SUCCINATE XL 50 MG TAB PO SCH (10:43)
[2017-07-06] MEDS: SERTRALINE HCL 50 MG TAB PO SCH ×2 (10:43→22:10)
[2017-07-06 11:35] LABS: Anisocytosis Slight; Hypochromia Marked; Microcytosis Marked
[2017-07-06 11:36] LABS: Ovalocytes MODERATE; Platelet Estimate Decreased; Tear Drop Cells FEW
[2017-07-06 11:38] LABS: Burr Cells FEW
[2017-07-06] MEDS ORDERED: POTASSIUM CHL 20 Meq TABLET PO ONE (13:00)
[2017-07-06] MEDS ORDERED: FUROSEMIDE 40 MG/4 ML VIAL IV ONE (13:00)
[2017-07-06] MEDS: clonazePAM 0.5 MG TAB PO SCH (22:11)
[2017-07-07 05:00] VITALS: BP 127/78
[2017-07-07 06:13] LABS: Basophils # (auto) 0 uL; Eosinophils # (auto) 0.2 uL; Eosinophils % (auto) 3.3 % (0.0-7.0); Hemoglobin 8.8 g/dL (13.5-17.5); Mean Corpuscular Hemoglobin 20.3 pg (28.0-32.0); Monocytes # (auto) 0.7 uL; Neutrophils # (auto) 5.1 uL; Nucleated Red Blood Cells % 0.1 %; White Blood Cell 6.9 10^3/uL (4.4-10.8)
[2017-07-07 06:15] LABS: Basophils % (auto) 0.5 % (0.0-2.0); Hematocrit 29.8 % (41.0-53.0); Lymphocytes # (auto) 0.8 uL; Lymphocytes % (auto) 12.1 % (10.0-50.0); Mean Corpuscular Hgb Conc. 29.5 g/dL (32.0-36.0); Mean Corpuscular Volume 68.9 fL (80.0-100.0); Monocytes % (auto) 10.4 % (0.0-12.0); Neutrophils % (auto) 73.7 % (37.0-80.0); Platelet Count (auto) 112 10^3/uL (140-450)
[2017-07-07 06:28] LABS: Red Cell Distribution Width 23.9 % (11.8-14.3)
[2017-07-07 08:30] VITALS: BP 138/83
[2017-07-07 08:45] LABS: Anisocytosis Moderate; Hypochromia Marked; Microcytosis Marked; Platelet Estimate Decreased
[2017-07-07 08:46] LABS: Ovalocytes FEW
[2017-07-07] MEDS: FINASTERIDE 5 MG TAB PO SCH (10:32)
[2017-07-07] MEDS: PANTOPRAZOLE 40 MG TAB PO SCH (10:32)
[2017-07-07] MEDS: SERTRALINE HCL 50 MG TAB PO SCH (10:32)
[2017-07-07] MEDS: METOPROLOL SUCCINATE XL 50 MG TAB PO SCH (10:33)
[2017-07-07 12:30] VITALS: BP 111/82
[2017-07-07 15:20] VITALS: BP 138/83
[2017-07-18] MEDS ORDERED: POTA10TA34 PO (13:16)
[2017-07-18] MEDS ORDERED: FERR325T18 PO (13:16)
== END 2017-07-07 15:45 | disposition home or self-care (01) | DRG 377 ==
LOC: WEST WING 14:34
PROVIDERS: ADMIT Family Medicine; ATTEND Internal Medicine
PROC: 30233N1 Transfusion of Nonautologous Red Blood Cells into Peripheral Vein, Percutaneous Approach (ICD-10-PCS; 2017-07-04)
PROC: 0DB68ZX Excision of Stomach, Via Natural or Artificial Opening Endoscopic, Diagnostic (ICD-10-PCS; principal; 2017-07-05 11:30)
DX: K29.71 Gastritis, unspecified, with bleeding (principal); I50.43 Acute on chronic combined systolic (congestive) and diastolic (congestive) heart failure; J96.90 Respiratory failure, unspecified, unspecified whether with hypoxia or hypercapnia; Q87.40 Marfan syndrome, unspecified; D69.6 Thrombocytopenia, unspecified; I11.0 Hypertensive heart disease with heart failure; D64.9 Anemia, unspecified; Z53.29 Procedure and treatment not carried out because of patient's decision for other reasons; Z95.2 Presence of prosthetic heart valve; Z88.8 Allergy status to other drugs, medicaments and biological substances; Z85.46 Personal history of malignant neoplasm of prostate
CPT/HCPCS: 36415; 43239; 71010; 80048; 81001; 85025; 85610; 85730; 86850; 86900; 86901; 86920; J2250

== ENCOUNTER → 2017-07-11 | Outpatient (CLI) | payer OTHER ==
[~2017-07-11] MED LIST changes: +CLON05T PO; -METO-159 PO; +METO1TAB9 PO
[2017-07-11 15:30] LABS: Basophils # (auto) 0 uL; Basophils % (auto) 0.6 % (0.0-2.0); Eosinophils # (auto) 0.2 uL; Eosinophils % (auto) 3.3 % (0.0-7.0); Hemoglobin 9.8 g/dL (13.5-17.5); Lymphocytes # (auto) 0.9 uL
[2017-07-11 15:33] LABS: Hematocrit 33.3 % (41.0-53.0); Mean Corpuscular Hemoglobin 20.2 pg (28.0-32.0); Mean Corpuscular Hgb Conc. 29.6 g/dL (32.0-36.0); Mean Corpuscular Volume 68.5 fL (80.0-100.0); Monocytes # (auto) 0.7 uL; Neutrophils # (auto) 4.9 uL; Neutrophils % (auto) 73.1 % (37.0-80.0); Platelet Count (auto) 146 10^3/uL (140-450); White Blood Cell 6.7 10^3/uL (4.4-10.8)
[2017-07-11 15:34] LABS: Red Cell Distribution Width 23.9 % (11.8-14.3)
[2017-07-11 15:43] LABS: BUN/Creatinine Ratio 28.7; Calcium 8.6 mg/dL (8.5-10.1); Potassium 4.6 mmol/L (3.5-5.1)
[2017-07-11 19:36] LABS: Anisocytosis Slight; Hypochromia Moderate; Microcytosis Moderate; Platelet Estimate Adequate
== END | disposition home or self-care (01) ==
LOC: LAB 15:10
PROVIDERS: ATTEND Family Medicine
DX: D61.9 Aplastic anemia, unspecified (principal); I11.0 Hypertensive heart disease with heart failure; I50.33 Acute on chronic diastolic (congestive) heart failure
CPT/HCPCS: 36415; 80048; 85025

== ENCOUNTER 2017-07-19 10:44 | Day surgery (SDC) | payer OTHER ==
[2017-07-18 12:42] LABS: Basophils # (auto) 0 uL; Eosinophils # (auto) 0.3 uL; Lymphocytes # (auto) 0.9 uL; Monocytes # (auto) 0.6 uL; Neutrophils % (auto) 69.5 % (37.0-80.0)
[2017-07-18 12:45] LABS: Basophils % (auto) 0.7 % (0.0-2.0); Eosinophils % (auto) 5.3 % (0.0-7.0); Hematocrit 33.5 % (41.0-53.0); Lymphocytes % (auto) 14.7 % (10.0-50.0); Mean Corpuscular Hemoglobin 20.4 pg (28.0-32.0); Mean Corpuscular Hgb Conc. 29.8 g/dL (32.0-36.0); Mean Corpuscular Volume 68.7 fL (80.0-100.0); Monocytes % (auto) 9.8 % (0.0-12.0); Neutrophils # (auto) 4.1 uL; Nucleated Red Blood Cells % 0.1 %; Platelet Count (auto) 161 10^3/uL (140-450); Red Blood Cells 4.87 10^6/uL (4.5-5.90); White Blood Cell 5.8 10^3/uL (4.4-10.8)
[2017-07-18 12:58] LABS: INR 1.14 (0.9-1.15); Partial Thromboplastin Time 28.9 sec (22.64-33.71); Prothrombin Time 12.4 sec (9.37-12.3)
[2017-07-18 13:05] LABS: Albumin 3.7 g/dL (3.4-5.0); BUN/Creatinine Ratio 32.6; Bilirubin, Total 0.7 mg/dL (0.2-1.0); Calcium 8.6 mg/dL (8.5-10.1); Potassium 4.5 mmol/L (3.5-5.1); Total Protein 7.1 g/dL (6.4-8.2)
[2017-07-18 13:29] LABS: Red Cell Distribution Width 23.7 % (11.8-14.3)
[~2017-07-19] VITALS: Ht 193 cm; Wt 108.9 kg
[~2017-07-19 10:44] MED LIST changes: -CLON05T PO; +FERR325T18 PO; +POTA10TA34 PO
[2017-07-19] MEDS ORDERED: ceFAZolin 1GM/50ML 50 ML IV ONE (12:04)
[2017-07-19] MEDS ORDERED: LIDOCAINE HCL 2 %PF INJ 10ML AMP IJ ONE (13:58)
[2017-07-19] MEDS ORDERED: PHENYLEPHRINE HCL 10 MG/ML VL ONE (13:58)
[2017-07-19] MEDS ORDERED: ROCURONIUM 10MG/ML 10ML VIAL IV ONE (13:58)
[2017-07-19] MEDS ORDERED: PROPOFOL 10 MG/ML 20 ML IV ONE ×2 (13:58→14:01)
[2017-07-19] MEDS ORDERED: fentaNYL CITRATE 100 MCG/2 ML VL ONE (13:58)
[2017-07-19] MEDS ORDERED: BELLADONNA ALKAL/OPIUM (16.2/30MG) RECT SUPP PR ONE (14:30)
[2017-07-19] MEDS ORDERED: NEOSTIGMINE 1 MG/ML INJ (10mg/10ML VIAL) ONE (14:41)
[2017-07-19] MEDS ORDERED: GLYCOPYRROLATE 0.2 MG/ML 1ML VIAL ONE ×2 (14:41→14:51)
[2017-07-19] MEDS ORDERED: LABETALOL HCL 5 MG/ML 4ML SYRINGE IV PRN (15:15)
[2017-07-19] MEDS ORDERED: HYDROmorphone HCL 2 MG/ML VL IV PRN (15:15)
[2017-07-19] MEDS ORDERED: METOCLOPRAMIDE HCL 5MG/ml INJ 2ml VIAL IV ONE (15:15)
[2017-07-19] MEDS ORDERED: NALOXONE HCL 0.4 MG/ML VIAL IV PRN (15:15)
[2017-07-19] MEDS ORDERED: ONDANSETRON HCL 4 MG/2 ML VIAL IV ONE (15:15)
[2017-07-19 16:50] VITALS: BP 112/81
== END 2017-07-19 16:55 | disposition home or self-care (01) ==
LOC: SUR 10:44
PROVIDERS: ATTEND Urology
DX: N40.1 Benign prostatic hyperplasia with lower urinary tract symptoms (principal); C61 Malignant neoplasm of prostate; D69.6 Thrombocytopenia, unspecified; I50.9 Heart failure, unspecified; G43.909 Migraine, unspecified, not intractable, without status migrainosus; Z88.8 Allergy status to other drugs, medicaments and biological substances; I48.91 Unspecified atrial fibrillation; Q87.40 Marfan syndrome, unspecified; I42.8 Other cardiomyopathies; D50.9 Iron deficiency anemia, unspecified
CPT/HCPCS: 36415; 52601; 80053; 85025; 85610; 85730; J0690; J2370; J2704; J3010; 88341

== ENCOUNTER → 2017-08-04 | Outpatient (CLI) | payer OTHER ==
[2017-08-04 16:25] LABS: Basophils # (auto) 0 uL; Hemoglobin 11.2 g/dL (13.5-17.5); Lymphocytes # (auto) 1.1 uL; Mean Platelet Volume 7.9 fL (6.9-10.8); Monocytes # (auto) 0.8 uL
[2017-08-04 16:27] LABS: Basophils % (auto) 0.4 % (0.0-2.0); Eosinophils # (auto) 0.3 uL; Eosinophils % (auto) 3.6 % (0.0-7.0); Lymphocytes % (auto) 11.8 % (10.0-50.0); Mean Corpuscular Hemoglobin 21.5 pg (28.0-32.0); Mean Corpuscular Hgb Conc. 30.4 g/dL (32.0-36.0); Mean Corpuscular Volume 70.7 fL (80.0-100.0); Monocytes % (auto) 9.1 % (0.0-12.0); Neutrophils % (auto) 75.1 % (37.0-80.0); Platelet Count (auto) 142 10^3/uL (140-450); White Blood Cell 9.3 10^3/uL (4.4-10.8)
[2017-08-04 17:43] LABS: Red Cell Distribution Width 26.3 % (11.8-14.3)
[2017-08-04 20:31] LABS: Anisocytosis Moderate; Platelet Estimate Adequate
[2017-08-04 20:32] LABS: Hypochromia Moderate; Microcytosis Moderate; Ovalocytes FEW; Tear Drop Cells FEW
== END | disposition home or self-care (01) ==
LOC: LAB 15:59
PROVIDERS: ATTEND Urology
DX: N32.81 Overactive bladder (principal); R10.9 Unspecified abdominal pain
CPT/HCPCS: 36415; 85025

== ENCOUNTER → 2017-10-06 | Outpatient (CLI) | payer OTHER | END | disposition home or self-care (01) | LOC: LAB 11:09 | PROVIDERS: ATTEND Urology | DX: C61 Malignant neoplasm of prostate (principal); N31.2 Flaccid neuropathic bladder, not elsewhere classified; N31.9 Neuromuscular dysfunction of bladder, unspecified | CPT/HCPCS: 84153 ==

== ENCOUNTER → 2017-12-01 | Outpatient (CLI) | payer OTHER ==
[2017-12-01 15:00] LABS: Basophils # (auto) 0 uL; Basophils % (auto) 0.6 % (0.0-2.0); Eosinophils # (auto) 0.3 uL; Eosinophils % (auto) 4.1 % (0.0-7.0); Hematocrit 51.6 % (41.0-53.0); Hemoglobin 17.1 g/dL (13.5-17.5); Lymphocytes # (auto) 1.4 uL; Lymphocytes % (auto) 19.3 % (10.0-50.0); Mean Corpuscular Hemoglobin 28.1 pg (28.0-32.0); Mean Corpuscular Hgb Conc. 33.1 g/dL (32.0-36.0); Monocytes # (auto) 0.7 uL; Monocytes % (auto) 9.5 % (0.0-12.0); Neutrophils # (auto) 4.8 uL; Neutrophils % (auto) 66.5 % (37.0-80.0); Nucleated Red Blood Cells % 1.8 %; Platelet Count (auto) 114 10^3/uL (140-450); Red Blood Cells 6.08 10^6/uL (4.5-5.90); Red Cell Distribution Width 20.7 % (11.8-14.3); White Blood Cell 7.1 10^3/uL (4.4-10.8)
[2017-12-01 15:52] LABS: Albumin 4.1 g/dL (3.4-5.0); BUN/Creatinine Ratio 25.5; Bilirubin, Total 0.8 mg/dL (0.2-1.0); Calcium 9.1 mg/dL (8.5-10.1); Potassium 4.1 mmol/L (3.5-5.1); Total Protein 7.4 g/dL (6.4-8.2)
[2017-12-06 15:10] LABS: Urine Amorphous Crystal FEW /hpf (None Seen); Urine Bacteria MOD /hpf (None Seen); Urine Blood Negative /uL (Negative); Urine Specific Gravity 1.009 (1.001-1.035); Urine WBC 29 /hpf (0 - 3); Urine WBC Clumps PRESENT /hpf (None Seen)
== END | disposition home or self-care (01) ==
LOC: LAB 14:45
PROVIDERS: ATTEND Family Medicine
DX: E78.5 Hyperlipidemia, unspecified (principal)
CPT/HCPCS: 36415; 80053; 80061; 81001; 85025

== ENCOUNTER → 2017-12-28 | Outpatient (CLI) | payer OTHER | END | disposition home or self-care (01) | LOC: LAB 14:51 | PROVIDERS: ATTEND Urology | DX: C61 Malignant neoplasm of prostate (principal); N39.41 Urge incontinence; E78.5 Hyperlipidemia, unspecified; I12.9 Hypertensive chronic kidney disease with stage 1 through stage 4 chronic kidney disease, or unspecified chronic kidney disease; N18.3 Chronic kidney disease, stage 3 (moderate); Z79.01 Long term (current) use of anticoagulants | CPT/HCPCS: 84153 ==

== ENCOUNTER → 2018-06-22 | Outpatient (CLI) | payer OTHER ==
[~2018-06-22] MED LIST changes: -CLON1TAB3 PO; +CLON1TAB4 PO; -POTA10TA34 PO; +POTA1TAB61 PO
== END | disposition home or self-care (01) ==
LOC: LAB 14:10
PROVIDERS: ATTEND Urology
DX: C61 Malignant neoplasm of prostate (principal); N39.41 Urge incontinence
CPT/HCPCS: 84153

== ENCOUNTER → 2018-08-03 | Outpatient (CLI) | payer OTHER | END | disposition home or self-care (01) | LOC: LAB 13:52 | PROVIDERS: ATTEND Urology | DX: N39.0 Urinary tract infection, site not specified (principal) | CPT/HCPCS: 87086; 87088; 87186 ==

== ENCOUNTER → 2019-01-18 | Outpatient (CLI) | payer OTHER ==
[~2019-01-18] MED LIST changes: +COLCPOW2 PO; -FINA5TAB4 PO; +POM; -POTA1TAB61 PO; +SERT-274 PO
[2019-01-18 16:55] LABS: INR 1.18 (0.9-1.15); Partial Thromboplastin Time 30.6 sec (23.78-33.04); Prothrombin Time 12.5 sec (9.27-12.13)
[2019-01-18 16:59] LABS: Basophils # (auto) 0 uL; Basophils % (auto) 0.6 % (0.0-2.0); Eosinophils # (auto) 0.2 uL; Hematocrit 47.4 % (41.0-53.0); Hemoglobin 16.1 g/dL (13.5-17.5); Lymphocytes # (auto) 0.7 uL; Lymphocytes % (auto) 11.9 % (10.0-50.0); Mean Corpuscular Hemoglobin 32.1 pg (28.0-32.0); Mean Corpuscular Volume 94.2 fL (80.0-100.0); Monocytes # (auto) 0.7 uL; Monocytes % (auto) 12.2 % (0.0-12.0); Neutrophils # (auto) 4.2 uL; Neutrophils % (auto) 71.3 % (37.0-80.0); Nucleated Red Blood Cells % 0.2 %; Platelet Count (auto) 75 10^3/uL (140-450); Red Blood Cells 5.03 10^6/uL (4.5-5.90); Red Cell Distribution Width 15.4 % (11.8-14.3); White Blood Cell 5.8 10^3/uL (4.4-10.8)
[2019-01-18 17:13] LABS: Albumin 3.7 g/dL (3.4-5.0); BUN/Creatinine Ratio 23.5; Calcium 8.6 mg/dL (8.5-10.1); Potassium 4.2 mmol/L (3.5-5.1)
[2019-01-18 17:17] LABS: Bilirubin, Total 1.7 mg/dL (0.2-1.0); Total Protein 7.1 g/dL (6.4-8.2)
[2019-01-18 17:23] LABS: Free T4 (Free Thyroxine) 0.71 ng/dL (0.89-1.76)
[2019-01-18 17:24] LABS: Folate (Folic Acid) > 24.00 ng/mL (5.38-24)
[2019-01-22 15:01] LABS: Hepatitis B Surface Antibody Negative
[2019-01-22 15:24] LABS: Hepatitis A Total Antibody Positive
[2019-01-22 16:44] LABS: Hepatitis B Surface Antigen Negative (Negative)
[2019-01-22 17:28] LABS: Hepatitis B Core Total AB Negative
[2019-01-22 17:29] LABS: Hepatitis C Antibody Negative (Negative)
== END | disposition home or self-care (01) ==
LOC: LAB 15:32
PROVIDERS: ATTEND Internal Medicine
DX: D64.9 Anemia, unspecified (principal); E78.5 Hyperlipidemia, unspecified; R40.0 Somnolence; F41.9 Anxiety disorder, unspecified
CPT/HCPCS: 36415; 80053; 80061; 82105; 82607; 82746; 84439; 84443; 85025; 85610; 85730; 86704; 86706; 86708; 86803; 87340

== ENCOUNTER 2019-01-25 17:12 | Inpatient (IN) | payer OTHER | END 2019-01-27 15:00 | LOC: TELE-WESTW 17:12 ==

== ENCOUNTER → 2019-03-08 | Outpatient (CLI) | payer OTHER ==
[~2019-03-08] MED LIST changes: -SERT-274 PO
== END | disposition home or self-care (01) ==
LOC: LAB 11:22
PROVIDERS: ATTEND Urology
DX: C61 Malignant neoplasm of prostate (principal); N39.41 Urge incontinence
CPT/HCPCS: 84153

== ENCOUNTER 2019-05-15 14:21 | Emergency (ER) | payer OTHER ==
[~2019-05-15] VITALS: Ht 193 cm; Wt 104.3 kg
[~2019-05-15 14:21] MED LIST changes: +CLON1TAB10 PO; -CLON1TAB4 PO
[2019-05-15 14:50] VITALS: BP 107/70
[2019-05-15] MEDS ORDERED: KETOROLAC TROMETH 30 MG/ML 1ML VIAL IM ONE (15:45)
[2019-05-15] MEDS ORDERED: TETANUS-DIPTH-ACEL PERTUSSIS 0.5ML SYRG IM ONE (17:30)
== END 2019-05-15 17:54 | disposition home or self-care (01) ==
LOC: ER 14:28
DX: S61.412A Laceration without foreign body of left hand, initial encounter (principal); S51.012A Laceration without foreign body of left elbow, initial encounter; Z88.8 Allergy status to other drugs, medicaments and biological substances; I11.0 Hypertensive heart disease with heart failure; I50.9 Heart failure, unspecified; W01.0XXA Fall on same level from slipping, tripping and stumbling without subsequent striking against object, initial encounter; Y93.89 Activity, other specified; Y99.8 Other external cause status; Y92.89 Other specified places as the place of occurrence of the external cause
CPT/HCPCS: 12002; 73080; 73130; 90471; 90715; 96372; 99284; J1885

== ENCOUNTER 2019-06-26 22:57 | Emergency (ER) | payer OTHER ==
[~2019-06-26] VITALS: Ht 188 cm; Wt 105.7 kg
[2019-06-26] MEDS ORDERED: ETOMIDATE (2MG/ML) 20ML VIAL IV ONE (23:25)
[2019-06-26] MEDS ORDERED: SUCCINYLCHOLINE CHLORIDE 20 MG/ML 10ML VIAL IV ONE (23:26)
[2019-06-26] MEDS ORDERED: PROPOFOL 100 ML IV SCH (23:34)
[2019-06-26] MEDS ORDERED: PROPOFOL 100 ML IV ONE (23:37)
[2019-06-26 23:53] LABS: Basophils # (auto) 0 uL; Basophils % (auto) 0.2 % (0.0-2.0); Eosinophils # (auto) 0 uL; Eosinophils % (auto) 0.3 % (0.0-7.0); Hematocrit 46.9 % (41.0-53.0); Hemoglobin 15.9 g/dL (13.5-17.5); Lymphocytes # (auto) 1.1 uL; Lymphocytes % (auto) 8.8 % (10.0-50.0); Mean Corpuscular Hemoglobin 32.4 pg (28.0-32.0); Mean Corpuscular Hgb Conc. 33.9 g/dL (32.0-36.0); Mean Corpuscular Volume 95.6 fL (80.0-100.0); Monocytes # (auto) 1.1 uL; Monocytes % (auto) 8.6 % (0.0-12.0); Neutrophils # (auto) 10.4 uL; Neutrophils % (auto) 82.1 % (37.0-80.0); Nucleated Red Blood Cells % 0.1 %; Platelet Count (auto) 114 10^3/uL (140-450); Red Cell Distribution Width 14.3 % (11.8-14.3); White Blood Cell 12.7 10^3/uL (4.4-10.8)
[2019-06-27 00:13] LABS: Alanine Aminotransferase 31 U/L (16-61); Albumin 4.1 g/dL (3.4-5.0); Anion Gap 10 (5-15); Aspartate Aminotransferase 42 U/L (15-37); BUN/Creatinine Ratio 35.1; Blood Alcohol < 3.0 mg/dL (0-5); Blood Urea Nitrogen 33 mg/dL (7-18); Calcium 8.8 mg/dL (8.5-10.1); Carbon Dioxide 20 mmol/L (21-32); Chloride 107 mmol/L (98-107); GFR African American 102 mL/min; GFR Non-African American 84 mL/min; Glucose 160 mg/dL (74-106); Sodium 137 mmol/L (136-145)
[2019-06-27 00:15] LABS: Alkaline Phosphatase 167 U/L (45-117); Bilirubin, Total 2.4 mg/dL (0.2-1.0); Total Protein 7.5 g/dL (6.4-8.2)
[2019-06-27 00:50] LABS: Amphetamine Screen, Urine NEGATIVE (NEGATIVE); Barbiturate Scree,Urine NEGATIVE (NEGATIVE); Cannabinoid Screen, Urine NEGATIVE (NEGATIVE); Cocaine Screen, Urine NEGATIVE (NEGATIVE); Opiate Scree,Urine NEGATIVE (NEGATIVE); Phencyclidine Screen, Urine NEGATIVE (NEGATIVE)
[2019-06-27 00:58] LABS: Benzodiazephine Screen, Urine POSITIVE (NEGATIVE)
[2019-06-27 01:06] LABS: Urine Bacteria MOD /hpf (None Seen); Urine Blood 3+ /uL (Negative); Urine Specific Gravity 1.021 (1.001-1.035); Urine WBC 239 /hpf (0 - 3)
[2019-06-27] MEDS ORDERED: PROPOFOL 100 ML IV SCH (02:49)
[2019-06-27 03:00] VITALS: BP 116/68
[2019-06-27] MEDS ORDERED: SUCCINYLCHOLINE CHLORIDE 20 MG/ML 10ML VIAL IV ONE (03:00)
[2019-06-27] MEDS ORDERED: ETOMIDATE (2MG/ML) 20ML VIAL IV ONE (03:00)
== END 2019-06-27 03:40 | disposition short-term general hospital (02) ==
LOC: ER 22:57 → EDBD 22:57 → ER 06-27 03:40
DX: S06.5X9A Traumatic subdural hemorrhage with loss of consciousness of unspecified duration, initial encounter (principal); N39.0 Urinary tract infection, site not specified; F10.129 Alcohol abuse with intoxication, unspecified; K92.2 Gastrointestinal hemorrhage, unspecified; I11.0 Hypertensive heart disease with heart failure; I50.9 Heart failure, unspecified; J44.9 Chronic obstructive pulmonary disease, unspecified; Y90.9 Presence of alcohol in blood, level not specified; Z88.8 Allergy status to other drugs, medicaments and biological substances
CPT/HCPCS: 31500; 36415; 36600; 51702; 70450; 71045; 72125; 80053; 80307; 80320; 81001; 82805; 85025; 87070; 87077; 87186; 87205; 99291; J0330; J2704; 94002